=== PATIENT | female | born 1970 | race Two or more races ===

== ENCOUNTER 2016-04-30 10:11 | Emergency (ER) | payer MEDICAID ==
[2016-04-30 11:12] LABS: PH,URINE 6.5 (5.0-8.0); SPECIFIC GRAVITY 1.015 (1.001-1.030); URINE BILIRUBIN NEGATIVE (NEGATIVE); URINE BLOOD NEGATIVE (NEGATIVE); URINE GLUCOSE (UA) NEGATIVE (NEGATIVE); URINE LEUKOCYTE ESTERASE NEGATIVE (NEGATIVE); URINE NITRITE NEGATIVE (NEGATIVE); URINE PROTEIN NEGATIVE (NEGATIVE); URINE UROBILINOGEN NORMAL (0-1 mg/dl)
[2016-04-30 11:14] LABS: URINE APPEARANCE CLEAR; URINE COLOR YELLOW
[2016-04-30 11:15] LABS: HCG,QUALITATIVE URINE NEGATIVE
--- NOTE | 2016-04-30 12:16 | CT ---
CT ABDOMEN AND PELVIS WITHOUT CONTRAST HISTORY: Right flank pain and painful urination TECHNIQUE: No intravenous contrast administered; contiguous axial images were acquired from the lung bases to the ischial tuberosities. Oral contrast was not administered. COMPARISON:None. FINDINGS: LUNG BASES: No gross airspace consolidation or pleural effusion. LIVER: No focal mass effect. SPLEEN: No focal mass effect. PANCREAS: No focal mass effect. ADRENAL GLANDS: No mass effect. KIDNEYS: No renal calculi. No collecting system dilatation. GALLBLADDER: Present. BOWEL: Moderate fecal loading. Limited assessment of the distal colon due to decompression. No abnormal small bowel dilatation. APPENDIX: Partially gas-filled appendix with minor appendicolith formation PELVIC ORGANS: Intrauterine device placement. Nondominant 1.6 cm left adnexal cyst. FREE FLUID: No gross free fluid identified. ABDOMINOPELVIC LYMPH NODES: No abnormally enlarged lymph nodes identified. ABDOMINAL AORTA: Normal caliber. OSSEOUS STRUCTURES: No grossly destructive lesions. Early lower lumbar disc degeneration with diffuse disc bulge at L4-5. IMPRESSION: 1. No evidence of urolithiasis or of upper urinary tract obstruction. The current study does not exclude pyelonephritis. 2. Noninflammatory, nonobstructive appearance of bowel. 3. Intrauterine device in place, nondominant 1.6 cm left adnexal cyst. 4. Early features of lumbar disc degeneration. Results were electronically transmitted to the electronic medical record at 04/30/2016 at 1213 hours.
== END 2016-04-30 12:31 | disposition home or self-care (01) ==
LOC: ED 10:11
DX: R10.9 Unspecified abdominal pain (principal); R30.0 Dysuria